=== PATIENT | female | born 1965 | race Caucasian/White ===

== ENCOUNTER 2018-07-05 10:15 | Emergency (ER) | payer MEDICARE ==
--- NOTE | 2018-07-05 11:49 | ER Document Report ---
HPI - HPI Patient complains to provider of: Pain under right axilla Onset: Other - 3 days Pain Level: 4 Context: 52-year-old female complaining of abscess under her right arm for 3 days. She tries to squeeze it and she also cut and the only thing that came out was blood. She had a history of a benign breast biopsy many years ago. She does not have a cat. Associated Symptoms: None Exacerbated by: Movement Relieved by: Denies Similar symptoms previously: Yes Recently seen / treated by doctor: No - ROS ROS below otherwise negative: Yes Systems Reviewed and Negative: Yes All other systems reviewed and negative Past Medical History - General Information source: Patient - Social History Smoking Status: Unknown if Ever Smoked Lives with: Family Family History: Reviewed & Not Pertinent - Medical History Medical History: Negative Surgical Hx: Negative Vertical Provider Document - CONSTITUTIONAL Agree With Documented VS: Yes Exam Limitations: No Limitations - INFECTION CONTROL TRAVEL OUTSIDE OF THE [place] IN LAST 30 DAYS: No - NECK Neck: Supple - MUSCULOSKELETAL/EXTREMETIES Musculoskeletal/Extremeties: MAEW, FROM, Tender - see below - NEURO Level of Consciousness: Awake - DERM Notes: right axilla with multiple indurated lesions, minimal soft tissue erythem, no fluctuance. Spoke with the radiologist and she recommended an IV contrasted CT versus ultrasound because I do not think there is anything to incise. The patient states she cut it at home a little bit and only got blood out of the smaller less than 1 cm indurated area. Course - Re-evaluation Re-evalutation: 07/05/18 16:23 CT scan shows no fluid collection or adenopathy. It does show some cellulitis. The patient states it is now starting to itch. - Vital Signs Vital signs: Temp Pulse Resp BP Pulse Ox 98.5 F 89 20 152/96 H 98 07/05/18 10:19 07/05/18 10:19 07/05/18 10:19 07/05/18 10:19 07/05/18 10:19 - Laboratory Result Diagrams: 07/05/18 13:00 07/05/18 13:00 Discharge - Discharge Clinical Impression: Right axilla cellulitis Condition: Good Disposition: HOME, SELF-CARE Instructions: Cellulitis ([facility]), Cephalexin ([facility]), Trimethoprim-Sulfa ([facility]), Warm Packs ([facility]) Additional Instructions: wam compress antibitoics until gone return to ER if worse, fever, increased swelling, pain Prescriptions: Cephalexin Monohydrate [Keflex 500 mg Capsule] 500 mg PO QID #28 capsule Sulfamethoxazole/Trimethoprim [Sulfamethoxazole-Tmp Ds Tablet] 1 each PO BID # 14 tablet
[2018-07-05 12:39] VITALS: BP 110/65
[2018-07-05 13:37] LABS: ABSOLUTE EOSINOPHILS # (AUTO) 0.1 10^3/uL (0.0-0.6); ABSOLUTE LYMPHOCYTES (AUTO) 2.1 10^3/uL (0.5-4.7); ABSOLUTE MONOCYTES (AUTO) 0.7 10^3/uL (0.1-1.4); ABSOLUTE NEUT (AUTO) 9.1 10^3/uL (1.7-8.2); BASOPHILS % (AUTO) 0.3 % (0-2); HEMATOCRIT 43.2 % (36.0-47.0); HEMOGLOBIN 14.3 g/dL (12.0-15.5); LYMPHOCYTES % (AUTO) 17.1 % (13-45); MEAN CORPUSCULAR HGB CONC 33.1 g/dL (32.0-36.0); MEAN CORPUSCULAR VOLUME 88 fl (80-97); PLATELET COUNT 243 10^3/uL (150-450); RED BLOOD COUNT 4.93 10^6/uL (3.72-5.28); RED CELL DISTRIBUTION WIDTH 14.1 % (11.5-14.0); SEGMENTED NEUTROPHILS % (AUTO) 75.6 % (42-78); TOTAL CELLS COUNTED % (AUTO) 100 %; WHITE BLOOD COUNT 12.1 10^3/uL (4.0-10.5)
[2018-07-05 13:44] LABS: ALANINE AMINOTRANSFERASE 26 U/L (9-52); ALBUMIN 3.9 g/dL (3.5-5.0); ALKALINE PHOSPHATASE 90 U/L (38-126); ANION GAP 5 (5-19); ASPARTATE AMINO TRANSFERASE 26 U/L (14-36); BILIRUBIN,DIRECT 0.3 mg/dL (0.0-0.4); BILIRUBIN,TOTAL 0.5 mg/dL (0.2-1.3); BLOOD UREA NITROGEN 9 mg/dL (7-20); CARBON DIOXIDE 28 mmol/L (22-30); CHLORIDE 109 mmol/L (98-107); GLUCOSE 90 mg/dL (75-110); POTASSIUM 4.2 mmol/L (3.6-5.0); SODIUM 142.2 mmol/L (137-145); TOTAL PROTEIN 7.2 g/dL (6.3-8.2)
--- NOTE | 2018-07-05 15:36 | RADIOLOGY REPORT (SQ) ---
EXAM DESCRIPTION: CT RT UPPER EXTREMITY WITH COMPLETED DATE/TIME: 07/05/2018 2:23 pm REASON FOR STUDY: right axilla soft tissue masses COMPARISON: None. TECHNIQUE: Axial imaging performed through the rightshoulder with reformatted oblique coronal and ob lique sagittal imaging windowed for bone and soft tissues. All CT scanners at this facility use dose modulation, iterative reconstruction, and/or weight based d osing when appropriate to reduce radiation dose to as low as reasonably achievable (ALARA). [facility]: Dose Right [facility]: CareDose [facility]: Dose Right [facility]: Teradose 4D [facility]: wiseri RADIATION DOSE: CT Rad equipment meets quality standard of care and radiation dose reduction techniq ues were employed. CTDIvol: 2.6 mGy. DLP: 73 mGy-cm. mGy. LIMITATIONS: None. FINDINGS: SOFT TISSUES: In the right axilla along the chest wall, there is skin thickening and subcu taneous fat stranding from cellulitis. No abscess. No adenopathy. No focal fluid collection. BONY ARCHITECTURE: No fracture. Normal bone density GLENOHUMERAL JOINT: No dislocation. No joint space narrowing ACROMION AND AC JOINT: Type 2 acromion with mild AC joint hypertrophy. No narrowing of the subacromi al space ROTATOR CUFF: Grossly intact, normal thickness GLENOID, LABRUM AND BICEPS: Difficult to visualize without arthrogram contrast OTHER: No other significant finding. IMPRESSION: Right axilla chest wall cellulitis. No abscess. No adenopathy. TECHNICAL DOCUMENTATION: JOB ID: [id number] Quality ID # [id number]: Final reports with documentation of one or more dose reduction techniques (e.g., Au tomated exposure control, adjustment of the mA and/or kV according to patient size, use of iterative reconstruction technique) [address]- All Rights Reserved Reading location - IP/workstation name: [email or web address]-[email or web address]
[2018-07-05] MEDS ORDERED: LIDOCAINE 1% INJ-PF (10 MG/ML) 30 ML SDV INFIL ONE (15:43)
[2018-07-05] MEDS ORDERED: CEFTRIAXONE INJ 1000 MG VIAL IM ONE (15:43)
[2018-07-05] MEDS ORDERED: SULFAMETHOXAZOLE/TRIMETHOPRIM 800-160 MG TABLET PO ONE (15:59)
[2018-07-05] MEDS ORDERED: CEFTRIAXONE INJ 1000 MG VIAL IV ONE (16:17)
== END 2018-07-05 17:43 | disposition home or self-care (01) ==
LOC: ER 10:15
DX: L03.111 Cellulitis of right axilla (principal)
CPT/HCPCS: 99283; 96374; 36415; 85025; 80053; 73201; J0696; A9270

== ENCOUNTER → 2018-09-13 | Outpatient (CLI) | payer MEDICARE, MEDICAID ==
[2018-09-13 08:54] LABS: ABSOLUTE BASOPHILS # (AUTO) 0.1 10^3/uL (0.0-0.2); ABSOLUTE EOSINOPHILS # (AUTO) 0.2 10^3/uL (0.0-0.6); ABSOLUTE LYMPHOCYTES (AUTO) 3.1 10^3/uL (0.5-4.7); ABSOLUTE MONOCYTES (AUTO) 0.6 10^3/uL (0.1-1.4); ABSOLUTE NEUT (AUTO) 6.1 10^3/uL (1.7-8.2); BASOPHILS % (AUTO) 0.6 % (0-2); EOSINOPHILS % (AUTO) 1.8 % (0-6); HEMATOCRIT 42.8 % (36.0-47.0); HEMOGLOBIN 14.4 g/dL (12.0-15.5); LYMPHOCYTES % (AUTO) 30.6 % (13-45); MEAN CORPUSCULAR HEMOGLOBIN 29.6 pg (27.0-33.4); MEAN CORPUSCULAR HGB CONC 33.7 g/dL (32.0-36.0); MEAN CORPUSCULAR VOLUME 88 fl (80-97); MONOCYTES % (AUTO) 5.9 % (3-13); PLATELET COUNT 274 10^3/uL (150-450); RED BLOOD COUNT 4.87 10^6/uL (3.72-5.28); RED CELL DISTRIBUTION WIDTH 14.8 % (11.5-14.0); SEGMENTED NEUTROPHILS % (AUTO) 61.1 % (42-78); TOTAL CELLS COUNTED % (AUTO) 100 %
[2018-09-13 09:21] LABS: ALANINE AMINOTRANSFERASE 16 U/L (9-52); ALBUMIN 3.5 g/dL (3.5-5.0); ALKALINE PHOSPHATASE 70 U/L (38-126); ANION GAP 9 (5-19); ASPARTATE AMINO TRANSFERASE 16 U/L (14-36); BILIRUBIN,DIRECT 0.1 mg/dL (0.0-0.4); BILIRUBIN,TOTAL 0.4 mg/dL (0.2-1.3); BLOOD UREA NITROGEN 12 mg/dL (7-20); CALCIUM 8.8 mg/dL (8.4-10.2); CARBON DIOXIDE 25 mmol/L (22-30); CHLORIDE 107 mmol/L (98-107); CHOLESTEROL 165.05 mg/dL (0-200); GLUCOSE 92 mg/dL (75-110); POTASSIUM 4.6 mmol/L (3.6-5.0); SODIUM 141.4 mmol/L (137-145); TRIGLYCERIDES 202 mg/dL (<150)
[2018-09-13 09:31] LABS: DIRECT LDL 115 mg/dL (<100)
[2018-09-13 09:36] LABS: VLDL CHOLESTEROL 40.4 mg/dL (10-31)
== END ==
LOC: OD 08:18
PROVIDERS: ATTEND Psychiatry & Neurology Psychiatry
DX: F32.9 Major depressive disorder, single episode, unspecified (principal); F41.1 Generalized anxiety disorder; F43.10 Post-traumatic stress disorder, unspecified; Z79.899 Other long term (current) drug therapy
CPT/HCPCS: 36415; 80053; 80061; 84443; 85025

== ENCOUNTER 2018-10-15 12:19 | Emergency (ER) | payer MEDICARE, MEDICAID ==
[2018-10-15 12:23] VITALS: BP 143/86
--- NOTE | 2018-10-15 12:32 | ER Document Report ---
ED Medical Screen (RME) - General Chief Complaint: Skin Sore(s) Stated Complaint: POSSIBLE ABSCESS Time Seen by Provider: 10/15/18 12:31 Mode of Arrival: Ambulatory Information source: Patient TRAVEL OUTSIDE OF THE [place] IN LAST 30 DAYS: No - HPI Patient complains to provider of: lesion on back Onset: Other - pt. feels like she has a mass on the L side of her mid back for several days. Worse today - Related Data Allergies/Adverse Reactions: No Known Allergies Allergy (Verified 10/15/18 12:19) Past Medical History Renal/ Medical History: Denies: Hx Peritoneal Dialysis Physical Exam - Vital signs Vitals: Temp Pulse Resp BP Pulse Ox 98.1 F 104 H 18 143/86 H 96 10/15/18 12:23 10/15/18 12:23 10/15/18 12:23 10/15/18 12:23 10/15/18 12:23 Course - Vital Signs Vital signs: Temp Pulse Resp BP Pulse Ox 98.1 F 104 H 18 143/86 H 96 10/15/18 12:23 10/15/18 12:23 10/15/18 12:23 10/15/18 12:23 10/15/18 12:23 Doctor's Discharge - Discharge Referrals: SAGAR HOLLINS MD [Primary Care Provider] - Follow up as needed
--- NOTE | 2018-10-15 13:46 | RADIOLOGY REPORT (SQ) ---
EXAM DESCRIPTION: CT THORACIC SPINE WITHOUT COMPLETED DATE/TIME: 10/15/2018 1:14 pm REASON FOR STUDY: thoracic spine lesion Palpable knot between left scapula and dorsal spine. COMPARISON: None. TECHNIQUE: Axial images acquired through the thoracic spine without intravenous contrast. Images re viewed with lung, soft tissue and bone windows. Reconstructed coronal and sagittal MPR images review ed. Images stored on PACS. All CT scanners at this facility use dose modulation, iterative reconstruction, and/or weight based d osing when appropriate to reduce radiation dose to as low as reasonably achievable (ALARA). [facility]: Dose Right [facility]: CareDose [facility]: Dose Right [facility]: Teradose 4D [facility]: Smart [employer] RADIATION DOSE: CT Rad equipment meets quality standard of care and radiation dose reduction techniq ues were employed. CTDIvol: 55.3 mGy. DLP: 2134 mGy-cm. mGy. LIMITATIONS: None. FINDINGS: VISUALIZED LUNGS: Dependent atelectasis in lung bases. Findings suggestive of mild centri lobular emphysema. SOFT TISSUES: Soft tissue edema posterior to spinous processes of L1-L3. VERTEBRAL BODIES: No fractures. No dislocation. No acute findings. DISCS: No significant disc space narrowing. ALIGNMENT: Normal. TRANSVERSE PROCESSES, POSTERIOR ELEMENTS: No fractures. No dislocation. No acute findings. HARDWARE: None in the spine. VISUALIZED RIBS: No fractures. OTHER: Image artifacts secondary to bra snaps. IMPRESSION: Soft tissue edema of subcutaneous fat posterior spinous processes of L1-L3. Otherwise, no significant abnormality seen. TECHNICAL DOCUMENTATION: JOB ID: [id number] Quality ID # [id number]: Final reports with documentation of one or more dose reduction techniques (e.g., Au tomated exposure control, adjustment of the mA and/or kV according to patient size, use of iterative reconstruction technique) 2010 [employer]- All Rights Reserved Reading location - IP/workstation name: [email or web address]
--- NOTE | 2018-10-15 14:35 | ER Document Report ---
ED General - General Chief Complaint: Skin Sore(s) Stated Complaint: POSSIBLE ABSCESS Time Seen by Provider: 10/15/18 12:31 Mode of Arrival: Ambulatory TRAVEL OUTSIDE OF THE [place] IN LAST 30 DAYS: No - HPI Notes: Patient is 53-year-old female that presents to the emergency department for chief complaint of swelling in her back. Patient states her daughter noticed that her mid thoracic back on the left was swollen a few days ago. She denies knowing of any swelling on that side prior to this. She reports a burning sensation over the area of swelling that is worse when she moves her left arm or turns her head to the left. She denies injury or trauma. She denies any redness or drainage from the area. She denies any fevers or chills. Patient states she has no chest pain or difficulty breathing. Past Medical History: Negative Past Surgical History: Negative Social History: Tobacco. Denies drugs and alcohol Family History: Reviewed and noncontributory for presenting illness Allergies: Reviewed, see documented allergy list. REVIEW OF SYSTEMS: CONSTITUTIONAL : No fever No chills No diaphoresis No recent illness EENT: No vision changes No congestion No sore throat CARDIOVASCULAR: No chest pain No palpitations RESPIRATORY: No shortness of breath No cough No difficulty breathing GASTROINTESTINAL: No abdominal pain No nausea No vomiting No diarrhea GENITOURINARY: No dysuria No hematuria No difficulty urinating MUSCULOSKELETAL: back pain No leg pain No arm pain SKIN: No rashes No lesions LYMPHATIC: No swollen, enlarged glands. NEUROLOGICAL: No lightheadedness No headache No weakness No paresthesias PSYCHIATRIC: No anxiety No depression PHYSICAL EXAMINATION: Vital signs reviewed, nursing noted reviewed. GENERAL: Well-appearing, well-nourished and in no acute distress. HEAD: Atraumatic, normocephalic. EYES: Eyes appear normal, extraocular movements intact, sclera anicteric, conjunctiva are normal. ENT: nares patent, oropharynx clear without exudates. Moist mucous membranes. NECK: Normal range of motion, supple without lymphadenopathy LUNGS: Breath sounds clear to auscultation bilaterally and equal. No wheezes rales or rhonchi. HEART: Regular rate and rhythm without murmurs ABDOMEN: Soft, nontender, normoactive bowel sounds. No rebound, guarding, or rigidity. No masses appreciated. EXTREMITIES: Nontender, good range of motion, no pitting or edema. Back: Lateral thoracic paraspinal muscle tenderness between the left scapula and spine with some edema and tenderness to palpation. No discernible mass. No overlying erythema NEUROLOGICAL: No focal neurological deficits. Moves all extremities spontaneously Motor and sensory grossly intact on exam. PSYCH: Normal mood, normal affect. SKIN: Warm, Dry, normal turgor, no rashes or lesions noted on exposed skin - Related Data Allergies/Adverse Reactions: No Known Allergies Allergy (Verified 10/15/18 12:19) Past Medical History - General Information source: Patient - Social History Smoking Status: Current Every Day Smoker Frequency of alcohol use: None Drug Abuse: Marijuana Family History: Reviewed & Not Pertinent Patient has suicidal ideation: No Patient has homicidal ideation: No Renal/ Medical History: Denies: Hx Peritoneal Dialysis Psychiatric Medical History: Reports: Hx Depression Physical Exam - Vital signs Vitals: Temp Pulse Resp BP Pulse Ox 98.1 F 104 H 18 143/86 H 96 10/15/18 12:23 10/15/18 12:23 10/15/18 12:23 10/15/18 12:23 10/15/18 12:23 Course - Re-evaluation Re-evalutation: 10/15/18 14:33 Vitals reviewed. Nursing notes reviewed. Patient has muscle spasm in her left thoracic paraspinal musculature. She was offered ibuprofen but declined. Patient was told to use anti-inflammatories and ice at home. Her CT scan today showed no mass lesion or areas of abscess. She did have some soft tissue swelli ng over her lumbar spine which is likely secondary to her obese body habitus, there is also no sign of acute process in that region. Patient will follow with her primary care for reevaluation in a few days. Thoracic Spine CT 10/15/18 12:31 IMPRESSION: Soft tissue edema of subcutaneous fat posterior spinous processes of L1-L3. Otherwise, no significant abnormality seen. - Vital Signs Vital signs: Temp Pulse Resp BP Pulse Ox 98.1 F 104 H 18 143/86 H 96 10/15/18 12:23 10/15/18 12:23 10/15/18 12:23 10/15/18 12:23 10/15/18 12:23 Discharge - Discharge Clinical Impression: Acute thoracic back pain Qualifiers: Back pain laterality: left Qualified Code(s): M54.6 - Pain in thoracic spine Condition: Stable Disposition: HOME, SELF-CARE Instructions: Stretching Exercises for the Back ([facility]) Additional Instructions: Please return to the emergency department if you have any worsening, or concern of your symptoms. Please return to the emergency department if you develop chest pain, difficulty breathing, severe abdominal pain, or ongoing vomiting. Please follow-up with your primary care physician in 2-3 days and any other recommended physicians. If prescribed, take all medications as directed. If you have any questions or concerns do not hesitate to return the emergency department for evaluation. Take ibuprofen at home as needed for pain and swelling. Ice the affected area 2-3 times daily for 20 minutes at a time. Do not apply ice directly to your skin. Referrals: SAGAR HOLLINS MD [NO LOCAL MD] - Follow up in 1 week
== END 2018-10-15 14:46 | disposition home or self-care (01) ==
LOC: ER 12:19
DX: M54.6 Pain in thoracic spine (principal); M62.830 Muscle spasm of back; F17.200 Nicotine dependence, unspecified, uncomplicated; F12.10 Cannabis abuse, uncomplicated; E66.9 Obesity, unspecified; R60.0 Localized edema
CPT/HCPCS: 72128; 99283

== ENCOUNTER 2019-01-17 12:38 | Emergency (ER) | payer MEDICARE, MEDICAID ==
[2019-01-17 12:46] VITALS: BP 165/91
== END 2019-01-17 12:45 | disposition left against medical advice (07) ==
LOC: ER 12:38
DX: Z53.21 Procedure and treatment not carried out due to patient leaving prior to being seen by health care provider (principal)

== ENCOUNTER 2019-03-01 09:53 | Emergency (ER) | payer MEDICARE, MEDICAID ==
[2019-03-01 10:20] VITALS: BP 137/77
--- NOTE | 2019-03-01 11:10 | ER Document Report ---
HPI - HPI Time Seen by Provider: 03/01/19 11:01 Pain Level: 0 Context: Patient presents emergency department with complaints of left ear feeling full and she cannot hear anything for the past 3 months. She is went to see urgent care twice and been placed on antibiotics. She reports nothing is working. She reports this started after she was in the shower she got out and she could not hear. She denies the ear ever hurting. Denies other symptoms such as fever vom iting runny nose cough cold symptoms. She has not been to see an ENT. Denies trauma. Associated Symptoms: None Exacerbated by: Denies Relieved by: Denies Similar symptoms previously: Yes Recently seen / treated by doctor: Yes - REPRODUCTIVE Reproductive: DENIES: : Past Medical History - General Information source: Patient - Social History Smoking Status: Current Every Day Smoker Chew tobacco use (# tins/day): No Frequency of alcohol use: None Drug Abuse: None Family History: Reviewed & Not Pertinent Patient has suicidal ideation: No Patient has homicidal ideation: No Renal/ Medical History: Denies: Hx Peritoneal Dialysis GI Medical History: Reports: Hx Gastroesophageal Reflux Disease Psychiatric Medical History: Reports: Hx Depression Surgical Hx: Negative Vertical Provider Document - CONSTITUTIONAL Agree With Documented VS: Yes Exam Limitations: No Limitations General Appearance: WD/WN, No Apparent Distress - INFECTION CONTROL TRAVEL OUTSIDE OF THE [place] IN LAST 30 DAYS: No - HEENT HEENT: Atraumatic, Normal ENT Exam, Normocephalic. negative: Conjuctival Inje ction, Pharyngeal Erythema, Tympanic Membrane Red - NECK Neck: Normal Inspection, Supple. negative: Lymphadenopathy-Left, Lymphadenopathy-Right - RESPIRATORY Respiratory: Breath Sounds Normal, No Respiratory Distress - CARDIOVASCULAR Cardiovascular: Regular Rate - MUSCULOSKELETAL/EXTREMETIES Musculoskeletal/Extremeties: ALONDRAEW, FROM - NEURO Level of Consciousness: Awake, Alert, Appropriate Motor/Sensory: No Motor Deficit - DERM Integumentary: Warm, Dry Course - Re-evaluation Re-evalutation: 03/01/19 11:07 Dr. Santiago ENT is on-call I will attempt to get her a appointment. Appointment obtained for tomorrow. Patient instructed. - Vital Signs Vital signs: Temp Pulse Resp BP Pulse Ox 98.6 F 91 18 137/77 H 93 03/01/19 10:19 03/01/19 10:19 03/01/19 10:19 03/01/19 10:19 03/01/19 10:19 Discharge - Discharge Clinical Impression: Irritation of left ear Hearing loss Qualifiers: Hearing loss type: unspecified Laterality: left Qualified Code(s): H91.92 - Unspecified hearing loss, left ear Condition: Stable Disposition: HOME, SELF-CARE Additional Instructions: *You have been evaluated for ear irritation, loss of hearing *Follow up with Dr Tavares tomorrow at 1015 *Return to ED for worsening condition, changes, needs Referrals: SAGAR TAVARES DO [ASSOCIATE] - 03/02/19 10:15 am
== END 2019-03-01 11:15 | disposition home or self-care (01) ==
LOC: ER 09:53
DX: H91.92 Unspecified hearing loss, left ear (principal); H93.92 Unspecified disorder of left ear; F17.200 Nicotine dependence, unspecified, uncomplicated
CPT/HCPCS: 99282

== ENCOUNTER → 2019-03-23 | Outpatient (CLI) | payer MEDICARE, MEDICAID ==
--- NOTE | 2019-03-23 11:25 | RADIOLOGY REPORT (SQ) ---
EXAM DESCRIPTION: MRI HEAD COMBO COMPLETED DATE/TIME: 03/23/2019 8:48 am REASON FOR STUDY: TINNITUS OF LEFT EAR (H93.12) H93.12 TINNITUS, LEFT EAR COMPARISON: None. TECHNIQUE: Multiplanar imaging includes noncontrasted T1, T2, FLAIR, diffusion with ADC map and post gadolinium contrast T1 sequences. Additional thin section axial T2 and additional thin section pre and postcontrast axial and coronal T 1 weighted images through the internal auditory canals and inner ear structures were obtained. Images stored on PACS. CONTRAST TYPE AND DOSE: 20 mL Dotarem. RENAL FUNCTION: Not indicated. ACR Type II contrast agent associated with few, if any, unconfounded cases of NSF LIMITATIONS: None. FINDINGS: ANATOMY: No anomalies. Normal vascular flow voids. Pituitary fossa normal. CSF SPACES: Normal in size and contour. No hemorrhage. CEREBRUM: Sulci and gyri normal in size and contour. Normal white matter signal on FLAIR imaging. No evidence of hemorrhage, mass, or extraaxial fluid collection. No abnormal enhancement post contrast. POSTERIOR FOSSA: No signal alteration. No hemorrhage. No edema, masses, or mass effect. Internal carlie tory canals, cerebellopontine angles, mastoids normal. No enhancing lesions. No abnormal enhancement post contrast. DIFFUSION IMAGING: Negative for acute or subacute infarction. ORBITS: No masses. Globes normal. PARANASAL SINUSES: No fluid levels. Mucosa normal. OTHER: No other significant finding. IMPRESSION: NORMAL MRI OF THE BRAIN WITHOUT AND WITH INTRAVENOUS GADOLINIUM CONTRAST. EVIDENCE OF ACUTE STROKE: NO. TECHNICAL DOCUMENTATION: JOB ID: [id number] [employer]- All Rights Reserved Reading location - IP/workstation name: [email or web address]
== END ==
LOC: RAD 07:21
PROVIDERS: ATTEND Otolaryngology
DX: H93.12 Tinnitus, left ear (principal)
CPT/HCPCS: 82565; 70553; A9576

== ENCOUNTER → 2019-05-19 | Outpatient (CLI) | payer MEDICARE, MEDICAID ==
--- NOTE | 2019-05-19 11:52 | WOMENS IMAGING REPORT ---
EXAM DESCRIPTION: BILAT SCREENING MAMMO W/CAD COMPLETED DATE/TIME: 05/19/2019 11:03 am REASON FOR STUDY: Z12.31 ROUTINE BILATERAL SCREENING Z12.31 ENCNTR SCREEN MAMMOGRAM FOR MALIGNANT N EOPLASM OF SHANIQUE COMPARISON: None. EXAM PARAMETERS: Standard craniocaudal and mediolateral oblique views of each breast recorded using digital acquisition. Read with the assistance of CAD. .[employer] - [employer] Version 9.2 LIMITATIONS: None. FINDINGS: No suspicious masses, suspicious calcifications or architectural distortion. No areas of c oncern. IMPRESSION: Negative MAMMOGRAM. BIRADS 1 BREAST DENSITY: a. The breasts are almost entirely fatty. BIRAD: ASSESSMENT: 1 NEGATIVE RECOMMENDATION: ROUTINE SCREENING COMMENT: The patient has been notified of the results by letter per MQSA requirements. Additional no tification policies are in place for contacting patient with suspicious or incomplete findings. Quality ID #[id number]: The [employer] recommends an annual screening mammogram for women aged 40 years or over. This facility utilizes a reminder system to ensure that all patients receive reminder letters, and/or direct phone calls for appointments. This includes reminders for routine scr eening mammograms, diagnostic mammograms, or other Breast Imaging Interventions when appropriate. Th is patient will be placed in the appropriate reminder system. TECHNICAL DOCUMENTATION: FINDING NUMBER: (1) ASSESSMENT: (1) JOB ID: [id number] [employer]- All Rights Reserved Reading location - IP/workstation name: [email or web address]
== END ==
LOC: WI 10:37
PROVIDERS: ATTEND Family Medicine
DX: Z12.31 Encounter for screening mammogram for malignant neoplasm of breast (principal)
CPT/HCPCS: 77067

== ENCOUNTER 2019-06-13 20:30 | Emergency (ER) | payer MEDICARE, MEDICAID ==
[2019-06-13 20:59] LABS: ABSOLUTE BASOPHILS # (AUTO) 0.1 10^3/uL (0.0-0.2); ABSOLUTE EOSINOPHILS # (AUTO) 0.1 10^3/uL (0.0-0.6); ABSOLUTE LYMPHOCYTES (AUTO) 2.8 10^3/uL (0.5-4.7); ABSOLUTE MONOCYTES (AUTO) 0.5 10^3/uL (0.1-1.4); BASOPHILS % (AUTO) 0.8 % (0-2); EOSINOPHILS % (AUTO) 1.2 % (0-6); HEMOGLOBIN 14.5 g/dL (12.0-15.5); LYMPHOCYTES % (AUTO) 32.7 % (13-45); MEAN CORPUSCULAR HEMOGLOBIN 28.8 pg (27.0-33.4); MEAN CORPUSCULAR HGB CONC 33.6 g/dL (32.0-36.0); MEAN CORPUSCULAR VOLUME 86 fl (80-97); MONOCYTES % (AUTO) 6.4 % (3-13); PLATELET COUNT 305 10^3/uL (150-450); RED BLOOD COUNT 5.03 10^6/uL (3.72-5.28); RED CELL DISTRIBUTION WIDTH 14.4 % (11.5-14.0); SEGMENTED NEUTROPHILS % (AUTO) 58.9 % (42-78); TOTAL CELLS COUNTED % (AUTO) 100 %; WHITE BLOOD COUNT 8.5 10^3/uL (4.0-10.5)
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
[2019-06-13 21:11] LABS: ACETAMINOPHEN 28 ug/mL (10-30); ALBUMIN 4.1 g/dL (3.5-5.0); ALKALINE PHOSPHATASE 75 U/L (38-126); ANION GAP 9 (5-19); ASPARTATE AMINO TRANSFERASE 33 U/L (14-36); BILIRUBIN,DIRECT 0.3 mg/dL (0.0-0.4); BILIRUBIN,TOTAL 0.4 mg/dL (0.2-1.3); BLOOD UREA NITROGEN 16 mg/dL (7-20); CALCIUM 9.5 mg/dL (8.4-10.2); CARBON DIOXIDE 27 mmol/L (22-30); CHLORIDE 103 mmol/L (98-107); GLUCOSE 149 mg/dL (75-110); POTASSIUM 4.1 mmol/L (3.6-5.0)
[2019-06-13 21:13] LABS: ALCOHOL < 10 mg/dL (NONE DETECTED); SALICYLATE < 1.0 mg/dL (2.0-20.0)
[2019-06-13] MEDS ORDERED: NORMAL SALINE 1000 ML 1,000 ML IV ONE (21:24)
[2019-06-14 01:37] LABS: APPEARANCE,URINE SLIGHTLY-CLOUDY; BILIRUBIN,URINE NEGATIVE (NEGATIVE); COLOR,URINE AMBER; GLUCOSE, URINE NEGATIVE (NEGATIVE); KETONES,URINE NEGATIVE (NEGATIVE); LEUKOCYTE ESTERASE,URINE NEGATIVE (NEGATIVE); NITRITE,URINE NEGATIVE (NEGATIVE); PROTEIN,URINE NEGATIVE (NEGATIVE); URINE SPECIFIC GRAVITY 1.031; UROBILINOGEN,URINE NEGATIVE mg/dL (<2.0)
[2019-06-14 01:53] LABS: URINE AMPHETAMINES SCREEN NEGATIVE; URINE BARBITURATES SCREEN NEGATIVE; URINE BENZODIAZEPINES SCREEN NEGATIVE; URINE COCAINE SCREEN NEGATIVE; URINE MARIJUANA (THC) SCREEN NEGATIVE; URINE METHADONE SCREEN NEGATIVE; URINE PHENCYCLIDINE SCREEN NEGATIVE
--- NOTE | 2019-06-14 10:28 | ER Document Report ---
Doctor's Note Notes: 06/14/19 10:27 Rounds: Chart reviewed and patient interviewed. Patient being evaluated and treated for depression and suicidal ideation. Took an overdose of a small number of trazodone. Feels better this morning. Slept well. No longer feeling depressed this morning. Patient's lab studies were all essentially normal. Vital signs are all normal. Patient appears to be medically stable for transfer or discharge. Steph Guerrero MD
[2019-06-14] MEDS: OLANZAPINE 2.5 MG TABLET PO SCH ×2 (11:29→18:56)
--- NOTE | 2019-06-14 17:31 | EKG REPORT ---
SEVERITY:- NORMAL ECG - SINUS RHYTHM : Confirmed by: Rebecca Chand MD 14-Jun-2019 17:30:29
[2019-06-15 06:19] VITALS: BP 111/76
[2019-06-15] MEDS: OLANZAPINE 2.5 MG TABLET PO SCH (09:50)
--- NOTE | 2019-06-15 10:27 | ER Document Report ---
Doctor's Note Notes: 06/15/19 10:27 Rounds: Chart reviewed and patient interviewed. Patient is being evaluated for depression, suicidal ideation, and an overdose of about 5 or 6 trazodone pills. She is doing well today. Vital signs are all normal. Lab studies are otherwise normal. Patient says she does not feel suicidal today. Patient appears to be medically stable for transfer or discharge. Steph Guerrero MD
--- NOTE | 2019-06-16 11:19 | PSYCHOLOGICAL NOTE ---
Psych Note - Psych Note Date seen by psych provider: 06/16/19 Time seen by psych provider: 08:05 Psych Note: Reason for Consult: Intentional Overdose Patient is a 53-year-old female with history of depression that presents to the emergency department for chief complaint of intentional overdose. Patient reports that EMS transported the patient to [facility] because "I guess I tried to kill myself." She reports that she is been feeling depressed for "a long time" however this is the first time she is ever attempted to harm herself. She reports that her daughter and her were arguing. Patient states she currently does not have any therapy however is prescribed Prozac by her physician Dr. Trent. She states recently her Prozac went from 10 mg to 20 mg daily. She believes that the Prozac is not helping her; "but do not worry I will be fine." Patient is alert and orientated to person, place, time and circumstance. Mood is dysphoric with tearful affect. Patient endorses intentional overdose with intent to harm self. Patient denies homicidal ideation. Delusions are absent behaviors congruent with an intact reality based presentation I organized and linear thought process. Eye contact is fair. Conversational speech overall is within normal rate, tone and prosody. Intellectual abilities appear to be within the average range. Attention and concentration are fair. Insight, judgment, impulse control are poor. Major depressive disorder per history provided by patient Medication recommendations per [facility]'s contracted psychiatrist Dr. Errol BRODY are as follows discontinue home medications of trazodone and Prozac please start Zyprexa 2.5 mg twice daily Impression\\plan: Patient is recommended to continue under IVC. Patient continues to present with dysphoric and tearful affect. Patient was accepted to [facility]; transportation has been requested. Dr. Vidal was consulted to care management of this patient; attending physicians agreement with recommendations disposition.
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
== END 2019-06-15 12:25 ==
LOC: ER 20:30
DX: T43.212A Poisoning by selective serotonin and norepinephrine reuptake inhibitors, intentional self-harm, initial encounter (principal); T39.1X2A Poisoning by 4-Aminophenol derivatives, intentional self-harm, initial encounter; R53.83 Other fatigue; F32.9 Major depressive disorder, single episode, unspecified; E11.9 Type 2 diabetes mellitus without complications; I10 Essential (primary) hypertension; E66.9 Obesity, unspecified; K21.9 Gastro-esophageal reflux disease without esophagitis; Z79.899 Other long term (current) drug therapy; Z59.0 Homelessness; Z63.79 Other stressful life events affecting family and household
CPT/HCPCS: 93005; 99285; 96360; 96361; 36415; 80307 ×4; 84703; 85025; 80053; 81001; 93010; A9270 ×2; J7030; J3490